=== PATIENT | male | born 1985 | race Caucasian/White ===

== ENCOUNTER → 2020-12-17 | Day surgery (SDC) | payer BC ==
[~2020-12-17] MED LIST: BUPIVACAINE HCL 0.5% INJ 30 ML VIAL INJ ONE; DEXAMETHASONE SOD PHOS INJ 4 MG/ML VIAL ONE; FENTANYL CITRATE/PF 100MCG/2 ML INJ ONE; MIDAZOLAM HCL 2 MG/2 ML VIAL ONE; NEOSTIGMINE 1 MG/ML 10ML VIAL ONE; ONDANSETRON HCL INJ 2MG/ML 2ML 2 MG/ML VIAL ONE; POVIDONE IODINE 0.05% 0.05 % ML PO ONE; PROPOFOL IV EMULSION 10 MG/ML 20 ML VIAL ONE; SEVOFLURANE INHAL SOLN 250 ML PEN BTL ONE; SODIUM CHLORIDE 0.9% 50ML 50 ML ONE
[2020-12-17 11:15] VITALS: BP 105/58
== END | disposition home or self-care (01) ==
LOC: OR 06:15
PROVIDERS: ATTEND Urology
DX: Z30.2 Encounter for sterilization (principal); R35.1 Nocturia; R39.12 Poor urinary stream; F41.9 Anxiety disorder, unspecified; R55 Syncope and collapse; Z01.812 Encounter for preprocedural laboratory examination; Z20.822 Contact with and (suspected) exposure to COVID-19
CPT/HCPCS: 55250; 88302; J0690; J1100; J2250; J2405; J2704; J2710; J3010; U0002; 88305